=== PATIENT | male | born 1940 | race Caucasian/White ===

== ENCOUNTER 2017-05-20 10:13 | Day surgery (SDC) | payer OTHER ==
[~2017-05-20] VITALS: Ht 185.4 cm; Wt 112.4 kg
[~2017-05-20 10:13] MED LIST: ALBUTEROL0.63 MG/3 IH; BREO ELLIPTA I1 EACH IH; CATAPRES0.1 MG PO; FERGON324 MG PO; INCRUSE ELLI62.5 MCG IH; LANTUS 10100 UNITS/ SC; LASIX80 MG PO; LO-DOSE ASPIRIN81 M1 PO; PROAIR RESPICL90 MCG IH; PROCARDIA XL60 MG PO; ROCALTROL0.25 MCG PO; VICTOZA 2-0.6 MG/0.1 SC; VITAMIN C500 M6 PO; XANAX0.5 MG PO; ZYLOPRIM100 MG PO
[2017-05-20 10:54] LABS: BASOPHIL COUNT 0.1 K/uL (0-0.1); EOSINOPHIL (%) 1.6 % (0-5); EOSINOPHIL COUNT 0.1 K/uL (0-0.3); HEMATOCRIT 32.8 % (38.0-50.0); IMMATURE GRANULOCYTE (%) 0.4 % (0.0-0.7); INSTRUMENT ABS NEUTROPHIL CT 4.4 K/uL; LYMPHOCYTE COUNT 2.7 K/uL (1.0-2.8); MCH 29.3 PG (29.0-34.0); MCHC 31.4 G/DL (30.0-36.0); MCV 93.4 FL (86-99); MEAN PLAT.VOLUME 9.2 uM^3 (9.0-12.4); MONOCYTE (%) 7.7 % (3-12); MONOCYTE COUNT 0.6 K/uL (0-0.8); NEUTROPHIL (%) 55.4 % (45-76); NEUTROPHIL COUNT 4.4 K/uL (1.8-6.4); PLATELET COUNT 226 K/uL (156-360); RBC DIS.WIDTH-CV 14.9 % (11.8-14.6); RED BLOOD COUNT 3.51 M/uL (4.00-5.50); WHITE BLOOD COUNT 7.9 K/uL (4.1-10.2)
[2017-05-20 11:38] LABS: ANION GAP 11 MEQ/L (2-14); CHLORIDE 99 MEQ/L (99-109); GFR ESTIMATE (CALCULATED) 13 mL/min/; GLUCOSE 150 mg/dL (70-99); POTASSIUM 3.5 MEQ/L (3.7-5.4); SAMPLE HEMOLYSIS CHECK 0; SAMPLE ICTERIC CHECK 0; SAMPLE LIPEMIA CHECK 0; SODIUM 140 MEQ/L (136-147); UREA NITROGEN (BUN) 45 mg/dL (9-23)
[2017-05-20 12:19] VITALS: BP 169/74
[2017-05-20 15:53] LABS: POINT-OF-CARE METER ID UU13113675
[2017-05-20 16:15] VITALS: BP 168/71
[2017-05-20 16:52] VITALS: BP 128/70
== END 2017-05-20 17:02 | disposition home or self-care (01) ==
LOC: SDC 10:13
PROVIDERS: Surgery
DX: I12.0 Hypertensive chronic kidney disease with stage 5 chronic kidney disease or end stage renal disease (principal); E11.22 Type 2 diabetes mellitus with diabetic chronic kidney disease; N18.6 End stage renal disease; Z99.2 Dependence on renal dialysis; Z87.891 Personal history of nicotine dependence; Z79.4 Long term (current) use of insulin; Z79.82 Long term (current) use of aspirin
CPT/HCPCS: 80048; 82948; 85025; C1768; J1170; J1644; J2250; J2720; J3010; S0074